=== PATIENT | male | born 1990 | race Asian ===

== ENCOUNTER → 2018-01-19 | Outpatient (CLI) | payer OTHER ==
--- NOTE | 2018-01-19 20:08 | DIAGNOSTIC IMAGING REPORT ---
CERVICAL SPINE MRI HISTORY: Neck pain. DEGENERATIVE DISC DISEASE TECHNIQUE: Multiplanar multisequence MRI of the cervical spine was performed without the use of contrast. COMPARISON STUDY: None. FINDINGS: Alignment and curvature are intact. Mild disc space narrowing at C5-C6. No fractures identified within the cervical spine. Mild artifact. Prevertebral soft tissues and the C1-C2 interval are maintained. The visualized posterior fossa is unremarkable. 5 mm hemangioma at C5. C2-C3: No significant central canal or neural foraminal narrowing. C3-C4: No significant central canal or neural foraminal narrowing. C4-C5: No significant central canal or neural foraminal narrowing. C5-C6: Left paracentral focal disc protrusion which abuts and slightly deforms the left anterior cord. This compresses the exiting left nerve root at this level and results in mild left-sided neural foraminal narrowing. No right-sided neural foraminal narrowing. C6-C7: No significant central canal or neural foraminal narrowing. C7-T1: No significant central canal or neural foraminal narrowing. IMPRESSION: Left paracentral focal disc protrusion at C5-C6 which abuts and slightly deforms the left anterior cord. This compresses the exiting left nerve root at this level and results in mild left-sided neural foraminal narrowing. Electronically signed by: Roberto Tapia M.D. 01/19/2018 8:06 PM Dictated Date/Time: 01/19/2018 8:02 PM
== END | disposition home or self-care (01) ==
LOC: C.MRI 19:06
PROVIDERS: ATTEND Family Medicine
DX: M50.20 Other cervical disc displacement, unspecified cervical region (principal)